=== PATIENT | male | born 1975 ===

== ENCOUNTER 2017-07-31 18:21 | Emergency (ER) | payer SELFPAY ==
[2017-07-31 19:24] VITALS: BP 127/73; PULSE 60; RESP 20; TEMP 97.9; O2SAT 99
--- NOTE | 2017-07-31 21:30 | C.PDOC ---
History Of Present Illness 42yo M comes in with left sided throat pain and one episode of blood tinged saliva that started today, with no fever and no cough. no trauma. Time Seen by Provider: 07/31/17 19:45 Chief Complaint (Nursing): ENT Problem History Per: Patient History/Exam Limitations: None Onset/Duration Of Symptoms: Hrs Current Symptoms Are (Timing): Still Present Quality (Mouth/Throat): Tenderness Symptoms Have Been: Continuous Severity: Mild Anticoagulant/Antiplatlet Use?: No Recent Aspirin Use: No Past Medical History Reviewed: Historical Data, Nursing Documentation, Vital Signs Vital Signs: Last Vital Signs Temp 97.9 F 07/31/17 19:19 Pulse 60 07/31/17 19:19 Resp 20 07/31/17 19:19 BP 127/73 07/31/17 19:19 Pulse Ox 99 08/02/17 20:52 - Medical History PMH: No Chronic Diseases Family History: States: Unknown Family Hx - Social History Hx Tobacco Use: No Hx Alcohol Use: No Hx Substance Use: No Review Of Systems Constitutional: Negative for: Fever, Chills ENT: Positive for: Throat Pain. Negative for: Ear Pain, Mouth Pain, Throat Swelling Cardiovascular: Negative for: Chest Pain Respiratory: Negative for: Cough, Shortness of Breath Gastrointestinal: Negative for: Abdominal Pain Skin: Negative for: Rash Physical Exam - Physical Exam Appears: Non-toxic, No Acute Distress Skin: Warm, Dry Head: Atraumatic, Normacephalic Eye(s): bilateral: Normal Inspection Ear(s): Bilateral: Normal Nose: No Discharge Oral Mucosa: Moist Tongue: Normal Appearing, No Swelling Lips: Normal Appearing, No Swelling Teeth: Normal Dentition Gingiva: Normal Appearing, No Bleeding Throat: No Erythema, No Exudate Neck: No Midline Cervical Tenderness, Supple Cardiovascular: Rhythm Regular, No Murmur Respiratory: No Decreased Breath Sounds, No Wheezing ED Course And Treatment O2 Sat by Pulse Oximetry: 99 Medical Decision Making Medical Decision Making: pt with left sided throat pain and spit some blood tinged saliva, no fever, no cough. rapid strep neg. d/c home, f/u clinic Disposition Counseled Patient/Family Regarding: Diagnosis, Need For Followup - Disposition Referrals: [facility] [Outside] Disposition: HOME/ ROUTINE Disposition Time: 21:30 Condition: GOOD Additional Instructions: Jaziel grgaras con agua salada tibia varias veces al da. [place] Tylenol o Motrin para el dolor. Jaziel un seguimiento en la clnica mdica en unos reese. Regrese a la ale de emergencias por cualquier sntoma peor, dificultad para tragar, escupir jazmin u otras preocupaciones. Gargle with warm salty water several times a day. Take Tylenol or Motrin for pain. Follow up in medical clinic in a few days. Return to ER for any worse symptoms, trouble swallowing, spitting up blood or other concerns Instructions: Sore Throat, Adult (DC) Forms: [facility] (Czech), Gen Discharge Inst Czech Print Language: URDU - Clinical Impression Clinical Impression: Pharyngitis
== END 2017-07-31 21:43 | disposition home or self-care (01) ==
LOC: C.ER 18:21
DX: J02.9 Acute pharyngitis, unspecified (principal)